=== PATIENT | female | born 1980 | race Caucasian/White ===

== ENCOUNTER 2017-07-24 08:40 | Emergency (ER) | payer MEDICAID, OTHER ==
[~2017-07-24] VITALS: Ht 180.3 cm; Wt 73.0 kg
[2017-07-24 08:44] VITALS: BP 111/82
[2017-07-24] MEDS ORDERED: DOXY100C43 PO (09:10)
[2017-07-24] MEDS ORDERED: METR500T PO (09:10)
[2017-07-24 09:44] LABS: URINE HCG NEGATIVE (NEG)
[2017-07-24 09:45] LABS: CLARITY,URINE CLOUDY (Clear); COLOR,URINE YELLOW (Yellow); GLUCOSE, URINE NEGATIVE (Neg); KETONES,URINE NEGATIVE (Neg); LEUKOCYTE ESTERASE ,URINE NEGATIVE (Neg); NITRITES, URINE NEGATIVE (Neg); OCCULT BLOOD,URINE TRACE-LYSED (Neg); PROTEIN,URINE NEGATIVE (Neg); UROBILINOGEN,URINE 0.2 E.U/dL (0.2-1.0)
[2017-07-24 09:47] LABS: UA COLLECTION TYPE CLN CATCH MIDSTREAM
[2017-07-24 09:55] LABS: SQUAMOUS EPITHELIAL CELL,UR MANY /LPF (FEW)
[2017-07-24 09:56] LABS: BACTERIA,URINE 4+ /HPF (Neg); MUCUS STRANDS NONE SEEN /LPF (Neg); RBC,URINE 0-2 /HPF (0-2); WBC,URINE 0-4 /HPF (0-4)
== END 2017-07-24 09:35 | disposition home or self-care (01) ==
LOC: ER 08:41
DX: N39.0 Urinary tract infection, site not specified (principal); A64 Unspecified sexually transmitted disease; A59.01 Trichomonal vulvovaginitis; Z88.0 Allergy status to penicillin
CPT/HCPCS: 36415; 81001; 81025; 87491; 99284

== ENCOUNTER 2017-08-06 16:49 | Emergency (ER) | payer MEDICAID, OTHER ==
[~2017-08-06] VITALS: Ht 180.3 cm; Wt 72.0 kg
[2017-08-06 16:54] VITALS: BP 161/88
[2017-08-06] MEDS ORDERED: ACET-812 PO (17:17)
[2017-08-06] MEDS ORDERED: CEPH500C5 PO (17:17)
[2017-08-06] MEDS ORDERED: acetaminophen 325mg tablet PO ONE (17:40)
== END 2017-08-06 17:53 | disposition home or self-care (01) ==
LOC: ER 16:49
DX: K04.7 Periapical abscess without sinus (principal); Z88.0 Allergy status to penicillin
CPT/HCPCS: 99283

== ENCOUNTER 2017-08-24 09:27 | Emergency (ER) | payer MEDICAID, OTHER ==
[~2017-08-24] VITALS: Ht 182.9 cm; Wt 72.0 kg
[~2017-08-24 09:27] MED LIST: ACET-812 PO; CEPH500C5 PO
[2017-08-24 09:39] VITALS: BP 161/110
[2017-08-24 10:10] LABS: URINE HCG NEGATIVE (NEG)
[2017-08-24 10:11] LABS: CLARITY,URINE SLIGHTLY CLOUDY (Clear); COLOR,URINE YELLOW (Yellow); GLUCOSE, URINE NEGATIVE (Neg); KETONES,URINE NEGATIVE (Neg); LEUKOCYTE ESTERASE ,URINE TRACE (Neg); NITRITES, URINE NEGATIVE (Neg); OCCULT BLOOD,URINE SMALL (Neg); PROTEIN,URINE NEGATIVE (Neg); UROBILINOGEN,URINE 0.2 E.U/dL (0.2-1.0)
[2017-08-24 10:15] LABS: UA COLLECTION TYPE CLN CATCH MIDSTREAM
[2017-08-24 10:20] LABS: SQUAMOUS EPITHELIAL CELL,UR MODERATE /LPF (FEW)
[2017-08-24 10:21] LABS: BACTERIA,URINE 2+ /HPF (Neg); RBC,URINE 0-2 /HPF (0-2)
[2017-08-24] MEDS ORDERED: azithromycin 250mg tablet PO ONE (12:00)
[2017-08-24] MEDS ORDERED: CefTRIAXone 1000mg IM Kit (w/lidocaine diluent) IM ONE (12:00)
[2017-08-24] MEDS ORDERED: METR500T4 PO (12:27)
== END 2017-08-24 12:38 | disposition home or self-care (01) ==
LOC: ER 09:28
DX: N76.0 Acute vaginitis (principal); N39.0 Urinary tract infection, site not specified; Z88.0 Allergy status to penicillin; Z79.899 Other long term (current) drug therapy; Z60.2 Problems related to living alone
CPT/HCPCS: 36415; 81001; 81025; 87077; 87088; 87186; 87491; 87591; 96372; 99284; J0696

== ENCOUNTER 2017-12-25 20:32 | Emergency (ER) | payer MEDICAID ==
[~2017-12-25] VITALS: Ht 180.3 cm; Wt 63.0 kg
[~2017-12-25 20:32] MED LIST changes: -ACET-812 PO
[2017-12-25 20:54] VITALS: BP 158/115
[2017-12-25] MEDS ORDERED: HYDROcodone/acetaminophen 10/325mg tab PO STA (20:57)
[2017-12-25] MEDS ORDERED: SULF1TAB49 PO (23:02)
== END 2017-12-25 23:45 | disposition home or self-care (01) ==
LOC: ER 20:32
DX: L02.214 Cutaneous abscess of groin (principal); L08.9 Local infection of the skin and subcutaneous tissue, unspecified; Z98.890 Other specified postprocedural states; Z88.0 Allergy status to penicillin
CPT/HCPCS: 10060; 99283; A6449

== ENCOUNTER 2018-01-03 10:18 | Emergency (ER) | payer MEDICAID ==
[~2018-01-03] VITALS: Ht 167.6 cm; Wt 69.7 kg
[2018-01-03 10:18] VITALS: BP 157/106
== END 2018-01-03 10:38 | disposition home or self-care (01) ==
LOC: ER 10:18
DX: Z48.00 Encounter for change or removal of nonsurgical wound dressing (principal); Z88.0 Allergy status to penicillin; Z79.2 Long term (current) use of antibiotics; Z60.2 Problems related to living alone
CPT/HCPCS: 99281

== ENCOUNTER 2019-01-11 16:41 | Emergency (ER) | payer MEDICAID, OTHER ==
[~2019-01-11] VITALS: Ht 180.3 cm; Wt 72.7 kg
[2019-01-11 17:14] LABS: CLARITY,URINE SLIGHTLY CLOUDY (Clear); COLOR,URINE YELLOW (Yellow); GLUCOSE, URINE NEGATIVE (Neg); KETONES,URINE NEGATIVE (Neg); LEUKOCYTE ESTERASE ,URINE NEGATIVE (Neg); NITRITES, URINE POSITIVE (Neg); OCCULT BLOOD,URINE NEGATIVE (Neg); PROTEIN,URINE NEGATIVE (Neg); UROBILINOGEN,URINE 0.2 E.U/dL (0.2-1.0)
[2019-01-11 17:15] LABS: UA COLLECTION TYPE CLN CATCH MIDSTREAM
[2019-01-11 17:30] LABS: SQUAMOUS EPITHELIAL CELL,UR MANY /LPF (FEW)
[2019-01-11 17:31] LABS: MUCUS STRANDS NONE SEEN /LPF (Neg); RBC,URINE 0-2 /HPF (0-2); WBC,URINE 0-4 /HPF (0-4)
[2019-01-11 17:32] LABS: BACTERIA,URINE 2+ /HPF (Neg)
[2019-01-11 17:40] LABS: URINE HCG NEGATIVE (NEG)
[2019-01-11] MEDS ORDERED: MET0.75G TP (18:49)
[2019-01-11 19:02] VITALS: BP 157/113
== END 2019-01-11 18:54 | disposition home or self-care (01) ==
LOC: ER 16:42
DX: N76.0 Acute vaginitis (principal); Z98.890 Other specified postprocedural states; Z60.2 Problems related to living alone; Z88.0 Allergy status to penicillin; Z79.899 Other long term (current) drug therapy
CPT/HCPCS: 81001; 81025; 87210; 99283